=== PATIENT | female | born 1965 ===

== ENCOUNTER 2024-12-17 12:00 | Inpatient (IN) | payer OTHER ==
[~2024-12-17] VITALS: Ht 152.4 cm; Wt 71.7 kg
[2024-12-17 13:24] VITALS: BP 125/78
[2024-12-17] MEDS ORDERED: ZESTORETIC 20-1 EAC1 PO (13:24)
[2024-12-17] MEDS ORDERED: METFORMIN HCL1000 M2 (13:24)
[2024-12-17] MEDS ORDERED: ROSUVASTATIN CA20 MG PO (13:24)
[2024-12-17 13:36] LABS: COVID-19 AG NEGATIVE (NEGATIVE)
[2024-12-23] MEDS ORDERED: CEFAZOLIN SODIUM 1,000 MG VIAL IV ONE (06:45)
[2024-12-23] MEDS ORDERED: KETOROLAC TROMETHAMINE 60 MG VIAL IM ONE (06:45)
[2024-12-23] MEDS ORDERED: TRANEXAMIC ACID 100MG/1ML (1000MG) AMPUL IV ONE ×2 (06:45)
[2024-12-23] MEDS ORDERED: BUPIVACAINE HCL 30 ML VIAL IJ ONE (06:45)
[2024-12-23] MEDS ORDERED: LIDOCAINE HCL 1%/EPINEPHRINE 20ML VIAL IJ ONE (06:45)
[2024-12-23] MEDS ORDERED: VANCOMYCIN HCL 1,000 MG VIAL IR ONE (06:45)
[2024-12-23] MEDS ORDERED: ISOPROPYL ALCOHOL 30 ML OUNCE TOP ONE (06:45)
[2024-12-23] MEDS ORDERED: MORPHINE SULFATE 4 MG/ML CARTRIDGE IV ONE (06:45)
[2024-12-23] MEDS ORDERED: ONDANSETRON HCL 2 MG/ML VIAL IV PRN (10:00)
[2024-12-23] MEDS ORDERED: SODIUM CHLORIDE 0.45 % 1,000 ML IV SCH (10:00)
[2024-12-23] MEDS ORDERED: OxyCODONE HCL 5 MG TABLET (ROXICODONE) PO PRN (10:00)
[2024-12-23] MEDS ORDERED: MORPHINE SULFATE 4 MG/ML CARTRIDGE IV PRN (10:00)
[2024-12-23] MEDS ORDERED: ACETAMINOPHEN 500 MG GEL..CAP PO SCH (12:00)
[2024-12-23] MEDS ORDERED: ENALAPRILAT DIHYDRATE 1.25 MG/ML VIAL IV PRN (15:45)
[2024-12-23] MEDS ORDERED: DEXTROSE 50 % IN WATER 0.5 G/ML VIAL IV PRN (16:00)
[2024-12-23] MEDS ORDERED: INSULIN LISPRO 1,000 UNIT/10 ML UNITS SUBCUTANEO PRN (16:00)
[2024-12-23] MEDS ORDERED: GABAPENTIN 300 MG CAPSULE PO ONE (16:24)
[2024-12-23] MEDS ORDERED: CEFAZOLIN SODIUM 1,000 MG VIAL ONE (16:24)
[2024-12-23] MEDS ORDERED: CEFAZOLIN SODIUM 1,000 MG VIAL IV SCH (17:00)
[2024-12-23] MEDS ORDERED: ROSUVASTATIN CALCIUM 20 MG TABLET PO SCH ×2 (17:00)
[2024-12-23] MEDS ORDERED: GABAPENTIN 300 MG CAPSULE PO SCH (17:00)
[2024-12-23] MEDS ORDERED: ACETAMINOPHEN 500 MG GEL..CAP PO ONE (18:57)
[2024-12-23 19:46] VITALS: BP 136/79
[2024-12-24 00:13] VITALS: BP 103/60
[2024-12-24 05:00] VITALS: BP 111/69
[2024-12-24 06:23] LABS: BASO % 0.3 % (0.1-1.2); EOS # 0.16 (0.04-0.54); EOS % 2.1 % (0.7-7.0); LYMPH # 2.30 (1.18-3.74); LYMPH % 29.7 % (19.3-53.1); MEAN PLATELET VOLUME 10.90 fl (9.4-12.4); MONO # 0.77 (0.24-0.82); MONO % 9.9 % (4.7-12.5); NEUT # 4.47 (1.56-6.13); NEUT % 57.7 % (34.0-71.1); RED CELL DISTRIBUTION WIDTH 13.0 % (11.6-14.4)
[2024-12-24 08:00] VITALS: BP 117/74
[2024-12-24] MEDS ORDERED: PERCOCET 5-3251 EACH PO (08:10)
[2024-12-24] MEDS ORDERED: ELIQUIS2.5 MG PO (08:10)
[2024-12-24] MEDS ORDERED: CEFADROXIL500 MG PO (08:10)
[2024-12-24] MEDS ORDERED: SENNOSIDES 1 TAB TABLET PO SCH (09:00)
[2024-12-24] MEDS ORDERED: HYDROCHLOROTHIAZIDE 25 MG TABLET PO SCH (09:00)
[2024-12-24] MEDS ORDERED: LISINOPRIL 20 MG TABLET PO SCH (09:00)
[2024-12-24] MEDS ORDERED: APIXABAN 2.5 MG TABLET PO SCH (09:00)
[2024-12-24 12:33] LABS: COVID-19 AG NEGATIVE (NEGATIVE)
[2024-12-24 13:14] LABS: BUN CREA RATIO 18.0 (7.0-25.0); CREATININE SERUM 0.6 mg/dL (0.55-1.02); GFR 101.63; GLUCOSE FASTING 197.0 mg/dL (65-100); OSMOLALITY SERUM 286.0 MOSM/KG (275-295)
[2024-12-24] MEDS ORDERED: SOD FERRIC GLUC COMPLX/SUCROSE 62.5 MG/5 ML AMPUL IV SCH (17:37)
[2024-12-24] MEDS ORDERED: Cyanocobalamin/Mecobalamin 1 TAB.SL SL NR (18:00)
[2024-12-24 19:26] VITALS: BP 135/78
[2024-12-25] VITALS: BP 126/75
[2024-12-25 06:43] LABS: BASO % 0.2 % (0.1-1.2); EOS # 0.05 (0.04-0.54); EOS % 0.5 % (0.7-7.0); LYMPH # 1.73 (1.18-3.74); LYMPH % 18.6 % (19.3-53.1); MEAN PLATELET VOLUME 10.90 fl (9.4-12.4); MONO # 0.91 (0.24-0.82); MONO % 9.8 % (4.7-12.5); NEUT # 6.56 (1.56-6.13); NEUT % 70.6 % (34.0-71.1); RED CELL DISTRIBUTION WIDTH 12.8 % (11.6-14.4)
[2024-12-25] MEDS ORDERED: Cyanocobalamin/Mecobalamin 1 TAB.SL SL SCH (09:00)
[2024-12-25] MEDS ORDERED: IRON FUM,PS/FOLIC ACID/VITC/B3 1 CAP CAPSULE PO SCH (09:00)
[2024-12-25 09:08] VITALS: BP 150/72
== END 2024-12-25 17:25 | DRG 470 ==
LOC: OB/GYN 12-23 06:00 → O/R 12-23 06:00 → SURH 12-23 12:00 → OB/GYN 12-23 14:56 → SURH 12-23 20:15 → O/R 12-25 17:03 → OB/GYN 12-25 17:05
PROVIDERS: ADMIT Orthopaedic Surgery; ATTEND Orthopaedic Surgery
PROC: 0MNP0ZZ Release Left Knee Bursa and Ligament, Open Approach (ICD-10-PCS; 2024-12-23)
PROC: 0SUD07Z Supplement Left Knee Joint with Autologous Tissue Substitute, Open Approach (ICD-10-PCS; 2024-12-23)
PROC: 0SRD0JZ Replacement of Left Knee Joint with Synthetic Substitute, Open Approach (ICD-10-PCS; principal; 2024-12-23 20:15)
DX: M17.12 Unilateral primary osteoarthritis, left knee (principal); D62 Acute posthemorrhagic anemia; M22.12 Recurrent subluxation of patella, left knee; I10 Essential (primary) hypertension